=== PATIENT | male | born 1950 | race Caucasian/White ===

== ENCOUNTER 2021-12-26 11:26 | Outpatient (CLI) | payer MEDICARE ==
[2021-12-26 13:04] LABS: Bilirubin Neg (Negative); Blood, Urine 10 (Negative); Clarity Clear (Clear); Glucose, Urine (Dipstick) 100 mg/dL (Negative); Ketone, Urine Negative (Negative); Leukocyte Negative (Negative); Nitrite Negative (Negative); Protein, Urine (Dipstick) 30 mg/dl (Neg-Trace)
[2021-12-26 13:28] LABS: Mucous/LPF 1+ LPF (<2+); Squamous Epithelial 0-3 HPF (0-3); WBC/HPF 0-3 HPF (0-3)
[2021-12-26 13:29] LABS: Bacteria/HPF Rare-Few HPF (None Seen)
[2021-12-26 13:36] LABS: Hemoglobin 15.3 g/dL (13.5-17.5); Mean Corpuscular HGB CONC 34.7 g/dL (32.0-36.0); Mean Corpuscular Hemoglobin 30.7 pg (27.0-33.0); Mean Corpuscular Volume 88.4 fl (81.2-95.1); Mean Platelet Volume 9.3 fl (7.4-10.4); Platelet Count 238 10x3/uL (150-450); RBC Distribution Width 13.4 % (11.5-14.5); Red Blood Cell (RBC) Count 4.99 10x6/uL (4.32-5.72); White Blood Cell (WBC) Count 7.4 10x3/uL (3.5-10.5)
[2021-12-26 13:39] LABS: Anion Gap 15 mmol/L (10-20); BUN (Urea Nitrogen) 18 mg/dL (8.4-25.7); Calc. Creatinine Clearance 0 mL/min (70-130); Calcium 9.5 mg/dL (7.8-10.44); Carbon Dioxide 22 mmol/L (23-31); Chloride 108 mmol/L (98-107); Estimated GFR 73; Glucose 121 mg/dL (83-110); Potassium 4.5 mmol/L (3.5-5.1); Sodium 140 mmol/L (136-145)
[2021-12-26 13:49] LABS: PTT 24.5 sec (22.0-33.0); Prothrombin Time 10.9 sec (9.5-12.1)
== END 2021-12-26 11:27 | disposition home or self-care (01) ==
LOC: LABBT 11:26
PROVIDERS: ATTEND Urology
DX: Z01.818 Encounter for other preprocedural examination (principal); N40.1 Benign prostatic hyperplasia with lower urinary tract symptoms; R35.1 Nocturia; Z20.822 Contact with and (suspected) exposure to COVID-19
CPT/HCPCS: 80048; 81001; 85027; 85610; 85730; 87086; 87811; 93005; 93010

== ENCOUNTER 2021-12-29 06:27 | Day surgery (SDC) | payer MEDICARE ==
[2021-12-27 12:03] VITALS: BMI 29.2
[2021-12-29] MEDS ORDERED: Levofloxacin 500 mg/D5W 100 ml Premix Bag ONE ×2 (07:17→08:50)
[2021-12-29] MEDS ORDERED: Fentanyl 100 MCG/2 ML VIAL ONE (08:31)
[2021-12-29] MEDS ORDERED: Glycopyrrolate 0.2 MG/ML 5 ML SYRINGE ONE (09:02)
[2021-12-29] MEDS ORDERED: PROPOFOL 200 MG/20 ML VIAL ONE (09:02)
[2021-12-29] MEDS ORDERED: B & O ONE (09:28)
[2021-12-29] MEDS ORDERED: HYDROcodone/Acetaminophen 5/325 mg Tablet ONE (10:23)
[2021-12-29] MEDS ORDERED: Phenazopyridine HCl 100 MG TAB ONE (10:23)
[2021-12-29] MEDS ORDERED: Oxybutynin 5 MG TAB ONE (10:23)
== END 2021-12-29 12:05 | disposition home or self-care (01) ==
LOC: SDC 06:27
PROVIDERS: ATTEND Urology
PROC: 0T7D8DZ Dilation of Urethra with Intraluminal Device, Via Natural or Artificial Opening Endoscopic (ICD-10-PCS; principal; 2021-12-29)
DX: N40.1 Benign prostatic hyperplasia with lower urinary tract symptoms (principal); N13.8 Other obstructive and reflux uropathy; R35.1 Nocturia; R39.12 Poor urinary stream; I10 Essential (primary) hypertension; E11.9 Type 2 diabetes mellitus without complications; E78.5 Hyperlipidemia, unspecified; Z79.82 Long term (current) use of aspirin; Z79.84 Long term (current) use of oral hypoglycemic drugs; Z79.890 Hormone replacement therapy; Z79.899 Other long term (current) drug therapy
CPT/HCPCS: C9740; L8699; J1956; J2704; J3010

== ENCOUNTER 2023-03-13 11:18 | Observation (INO) | payer MEDICARE ==
[2023-03-13] MEDS ORDERED: Atropine Sulfate 1 mg/10 ml Syringe ONE (12:07)
[2023-03-13] MEDS ORDERED: Ondansetron PF 4 MG/2 ML Vial ONE (12:08)
[2023-03-13] MEDS ORDERED: Acetaminophen 325 MG TAB PO PRN (13:39)
[2023-03-13] MEDS ORDERED: Dextrose 5% in Water 1,000 ML IV PRN (13:59)
[2023-03-13] MEDS ORDERED: HumaLOG 300 UNITS/3 ML VIAL SC PRN (13:59)
[2023-03-13] MEDS ORDERED: Glucagon 1 MG/ML KIT IM PRN (13:59)
[2023-03-13] MEDS ORDERED: Dextrose 50% Abboject 50 ML SYRINGE SLOW IVP PRN (13:59)
[2023-03-13 16:16] VITALS: BMI 28.7
[2023-03-13 17:23] LABS: Hemoglobin A1c 7.6 % (4.0-6.0)
[2023-03-13 17:42] LABS: Troponin I Less than 0.010 ng/mL (< 0.028)
[2023-03-13] MEDS: metFORMIN 500 MG TAB PO SCH (18:11)
[2023-03-13] MEDS ORDERED: Atorvastatin Calcium 10 MG TAB PO SCH ×2 (21:00)
[2023-03-13] MEDS ORDERED: Oxybutynin ER 5 MG TAB PO SCH (21:00)
[2023-03-13] MEDS ORDERED: Atorvastatin Calcium 20 MG TAB PO SCH (21:00)
[2023-03-13] MEDS: Tamsulosin HCl 0.4 MG CAP PO SCH (21:49)
[2023-03-13 23:31] LABS: Troponin I Less than 0.010 ng/mL (< 0.028)
[2023-03-14] MEDS ORDERED: Levothyroxine Sodium 75 MCG TAB PO SCH ×2 (06:00)
[2023-03-14 08:17] VITALS: TEMP 97.3
[2023-03-14] MEDS: Tamsulosin HCl 0.4 MG CAP PO SCH (08:33)
[2023-03-14] MEDS: metFORMIN 500 MG TAB PO SCH (08:33)
[2023-03-14] MEDS ORDERED: Mirabegron ER 25 MG ER.TAB PO SCH (09:00)
[2023-03-14] MEDS ORDERED: Tamsulosin HCl 0.4 MG CAP PO SCH (09:00)
[2023-03-14] MEDS ORDERED: Lisinopril 2.5 MG TAB PO SCH ×2 (09:00)
[2023-03-14] MEDS ORDERED: Regadenoson 0.4 MG/5 ML SYRINGE ONE (09:59)
== END 2023-03-14 14:21 | disposition home or self-care (01) ==
LOC: ERS 11:18 → INTOOBSV 14:20 → IMCU/EMU 14:20
PROVIDERS: ADMIT Internal Medicine; ATTEND Family Medicine
DX: R00.1 Bradycardia, unspecified (principal); M79.601 Pain in right arm; M54.2 Cervicalgia; M25.511 Pain in right shoulder; E11.9 Type 2 diabetes mellitus without complications; I10 Essential (primary) hypertension; E78.5 Hyperlipidemia, unspecified; E03.9 Hypothyroidism, unspecified; N40.0 Benign prostatic hyperplasia without lower urinary tract symptoms; Z79.82 Long term (current) use of aspirin; Z79.890 Hormone replacement therapy; Z79.84 Long term (current) use of oral hypoglycemic drugs; Z79.899 Other long term (current) drug therapy
CPT/HCPCS: 78452; 82962 ×2; 83036; 84484; 93005; 93017; 96374; 99221; 99285; A9502; G0378 ×2; J0461; J2785; 36415; 36416; J2405

== ENCOUNTER 2024-12-08 14:40 | Outpatient (CLI) | payer OTHER | END 2024-12-08 14:41 | disposition home or self-care (01) | LOC: SCSRAD 14:40 | PROVIDERS: ATTEND Family Medicine | DX: R06.00 Dyspnea, unspecified (principal) | CPT/HCPCS: 71046 ==